=== PATIENT | female | born 1930 | race Caucasian/White ===

== ENCOUNTER 2017-11-01 19:47 | Emergency (ER) | payer MEDICARE, BC ==
--- NOTE | 2017-11-01 20:31 | ED ---
Head Injury - HPI Summary HPI Summary: 87 y/o female presents to the ED c/o immediate onset, constant L side facial pain and bruising s/p fall several hours ago. No LOC, but pt unsure why or how she fell. Pt comes from [facility] assisted [facility]. Associated sx: L wrist pain. Pain not aggravated or alleviated by anything. Pt not on blood thinners. Pt accompanied by her daughter. This is scribe Ed Gracy documenting for attending Mendoza Brandt MD. - History Of Current Complaint Chief Complaint: EDHeadInjury Stated Complaint: FALL/HEAD AND LT ARM INJURY Time Seen by Provider: 11/01/17 20:21 Hx Obtained From: Patient Mechanism Of Injury: Fall From A Standing Position Onset/Duration: Started Hours Ago Onset of Pain: Immediate Pain Intensity: 5 Associated Signs And Symptoms: Bruising - facial, Other: - L wrist pain - Allergies/Home Medications Allergies/Adverse Reactions: Allergies Allergy/AdvReac Type Severity Reaction Status Date / Time No Known Allergies Allergy Verified 11/01/17 19:58 PMH/Surg Hx/FS Hx/Imm Hx Previously Healthy: No Cardiovascular History: Reports: Hx Hypertension Neurological History: Reports: Hx Transient Ischemic Attacks (TIA) Infectious Disease History: No Infectious Disease History: Denies: Traveled Outside the [place] in Last 30 Days - Family History Known Family History: Positive: Unknown - Social History Lives: Assisted Living Review of Systems Constitutional: Negative Eyes: Negative ENT: Negative Cardiovascular: Negative Respiratory: Negative Gastrointestinal: Negative Genitourinary: Negative Musculoskeletal: Other - L arm pain Positive: Bruising - facial Neurological: Negative Psychological: Normal All Other Systems Reviewed And Are Negative: Yes Physical Exam - Summary Physical Exam Summary: Appearance: Well appearing, no pain distress Skin: warm, dry, reflects adequate perfusion. Abrasion @ L side face, swelling over the L orbit. Head/face: normal Eyes: EOMI, WEI ENT: normal Neck: supple, non-tender Respiratory: CTA, breath sounds present Cardiovascular: RRR, pulses symmetrical Abdomen: non-tender, soft Bowel: present Musculoskeletal: Tenderness @ L wrist, strength/ROM intact Neuro: normal, sensory motor intact, A&Ox3 Triage Information Reviewed: Yes Vital Signs On Initial Exam: Initial Vitals Temp Pulse Resp BP Pulse Ox 98.3 F 68 20 126/107 100 11/01/17 19:50 11/01/17 19:50 11/01/17 19:50 11/01/17 19:50 11/01/17 19:50 Vital Signs Reviewed: Yes Diagnostics - Vital Signs Vital Signs Temp Pulse Resp BP Pulse Ox 11/01/17 19:50 98.3 F 68 20 126/107 100 - Laboratory Result Diagrams: 11/01/17 21:09 11/01/17 21:09 Lab Statement: Any lab studies that have been ordered have been reviewed, and results considered in the medical decision making process. - Radiology CXR Xray Interpretation: No Acute Changes Radiology Interpretation Completed By: ED Physician FOREARM XR Xray Interpretation: No Acute Changes Radiology Interpretation Completed By: ED Physician - CT BRAIN CT CT Interpretation: No Acute Changes - No acute intracranial abnormality. Age- related atrophy and mild chronic small vessel ischemic disease. CT Interpretation Completed By: Radiologist - EKG 1 EKG Interpretation: 20:43 - Paced rhythm @ 67 BPM. Head Injury Course/Dx Assessment/Plan: 87 y/o female presents to the ED c/o facial brusing, L wrist pain s/p fall. CXR and Forearm XR negative. bloodwork obtained. BRAIN CT negative. EKG paced. UA (+) UTI. Pt will be d/c home with Rx abx and f/u with PCP. Pt understands and agrees. - Diagnoses Differential Diagnosis/HQI/PQRI: Contusion, Intracranial Bleed, Orbital Fracture Provider Diagnoses: Fall, Head injury, UTI (urinary tract infection) Discharge - Sign-Out/Discharge Documenting (check all that apply): Patient Departure - Discharge Plan Condition: Stable Disposition: HOME Prescriptions: Sulfamethox/Trimethoprim DS* [Bactrim DS 800/160 TAB*] 1 tab PO BID #6 tab Patient Education Materials: Urinary Tract Infection in Women (ED), Fall Prevention for Older Adults (ED), Head Injury (ED) Referrals: [facility] [place] [facility] [Outside] - 4 Days (PLEASE F/u IN 3-5 DAYS) Additional Instructions: RETURN TO ED FOR WORSENING SYMPTOMS - Billing Disposition and Condition Condition: STABLE Disposition: Home
[2017-11-01 21:20] LABS: ABS Basophils 0.1 10^3/ul (0-0.2); ABS Eosinophils 0.1 10^3/ul (0-0.6); ABS Lymphocytes 0.9 10^3/ul (1.0-4.8); ABS Monocytes 0.6 10^3/ul (0-0.8); ABS Neutrophils 5.1 10^3/ul (1.5-7.7); ABS Nucleated RBC 0 10^3/ul; Eosinophil % 0.9 % (0-6); Hematocrit 40 % (35-47); Hemoglobin 13.6 g/dl (12.0-16.0); Lymphocyte % 13.9 % (25-47); Mean Corpuscular HGB Conc 34 g/dl (31-36); Mean Corpuscular Hemoglobin 32 pg (27-31); Mean Corpuscular Volume 94 fL (80-97); Mean Platelet Volume 6.4 um3 (7.4-10.4); Nucleated Red Blood Cells % 0; Platelet Count 218 10^3/ul (150-450); Red Blood Count 4.23 10^6/ul (4.00-5.40); Red Cell Distribution Width 14 % (10.5-15); White Blood Count 6.8 10^3/ul (3.5-10.8)
[2017-11-01 21:28] LABS: INR 0.95 (0.77-1.02)
[2017-11-01 21:35] LABS: EGFR Non-African American 47.8 (>60)
[2017-11-01 23:03] LABS: Urine Appearance Cloudy; Urine Blood 2+ (Negative); Urine Color Yellow; Urine Ketones Negative (Negative); Urine Protein Negative (Negative); Urine Red Blood Cell 3+(>10/hpf) (Absent); Urine Specific Gravity 1.016 (1.010-1.030); Urine Urobilinogen Negative (Negative); Urine White Blood Cell 3+(>20/hpf) (Absent)
[2017-11-01] MEDS ORDERED: Sulfamethox/Trimethoprim DS 800/160* TAB PO ONE (23:12)
[2017-11-01 23:47] VITALS: BP 172/89
--- NOTE | 2017-11-02 07:01 | RAD ---
INDICATION: Head injury. COMPARISON: There are no prior studies available for comparison. TECHNIQUE: Contiguous axial sections of the brain were obtained from the skull base to the vertex without contrast. FINDINGS: The ventricles, cisterns and sulci are enlarged consistent with diffuse atrophy. There are multiple focal areas of decreased density in the subcortical and periventricular white matter suggestive of moderate chronic small vessel ischemic changes. No other focal abnormality or mass effect is seen. There is no evidence for hemorrhage. No significant focal osseous abnormality is seen. The visualized portion of the paranasal sinuses and mastoid air cells appear clear. IMPRESSION: 1. NO EVIDENCE FOR ACUTE INTRACRANIAL ABNORMALITY. 2. ATROPHY AND FINDINGS CONSISTENT WITH CHRONIC SMALL VESSEL SCHEMA CHANGES.
--- NOTE | 2017-11-02 07:26 | RAD ---
Indication: Left forearm injury. 2 views of left forearm demonstrates no fracture or dislocation. No other bone or joint abnormality is noted. IMPRESSION: No fracture of the left forearm is noted.
--- NOTE | 2017-11-02 07:26 | RAD ---
Indication: Chest pain, fall. Single frontal view of the chest performed at 2049 hours was reviewed. No prior study is available for comparison. No mediastinal shift is noted. Heart is of normal size and configuration. Lung meraz appear clear. Hyperinflated lung meraz are noted. Pacemaker leads are in place. IMPRESSION: NO ACTIVE CARDIOPULMONARY DISEASE IS NOTED.
--- NOTE | 2017-11-03 06:56 | PN ---
Progress Note - Progress Note Date of Service: 11/03/17 Note: urine culture grew gram negative bacilli >100,000. place on bactrim will wait for final culture for sensitivity.
== END 2017-11-01 23:52 | disposition home or self-care (01) ==
LOC: ED 19:47
DX: S09.90XA Unspecified injury of head, initial encounter (principal); N39.0 Urinary tract infection, site not specified; W19.XXXA Unspecified fall, initial encounter; Y92.9 Unspecified place or not applicable; M79.602 Pain in left arm
CPT/HCPCS: 36415; 70450; 71045; 80053; 81003; 81015; 84484; 85025; 85610; 85730; 87077; 87086; 87186; 93005; 99283